=== PATIENT | female | born 1995 | race Caucasian/White ===

== ENCOUNTER 2020-12-28 11:28 | Inpatient (IN) | payer OTHER ==
[2020-12-28 12:16] VITALS: BMI 37.4
[2020-12-28] MEDS ORDERED: Lidocaine 1% (PF) 30 ML VIAL SC PRN (12:18)
[2020-12-28] MEDS ORDERED: Ibuprofen 800 MG TAB PO PRN (12:18)
[2020-12-28] MEDS ORDERED: hydrALAZINE 20 MG/ML VIAL SLOW IVP PRN (12:18)
[2020-12-28] MEDS ORDERED: HYDROcodone/Acetaminophen 5/325 mg Tablet PO PRN ×2 (12:18)
[2020-12-28] MEDS ORDERED: Promethazine HCl 25 MG/ML VIAL IM PRN (12:18)
[2020-12-28] MEDS ORDERED: NS / Oxytocin 40 units/1000ml 1,000 ML IV PRN (12:18)
[2020-12-28] MEDS ORDERED: Ondansetron PF 4 MG/2 ML Vial IVP PRN (12:18)
[2020-12-28] MEDS ORDERED: Butorphanol Tartrate 1 MG/ML VIAL SLOW IVP PRN (12:18)
[2020-12-28 14:11] LABS: Hemoglobin 13.5 g/dL (12.0-15.5); Mean Corpuscular HGB CONC 33.2 g/dL (32.0-36.0); Mean Corpuscular Hemoglobin 29.9 pg (27.0-33.0); Mean Corpuscular Volume 90.2 fl (81.6-98.3); Mean Platelet Volume 11.2 fl (7.4-10.4); Platelet Count 233 10x3/uL (150-450); RBC Distribution Width 13.4 % (11.5-14.5); Red Blood Cell (RBC) Count 4.51 10x6/uL (3.90-5.03); White Blood Cell (WBC) Count 15.4 10x3/uL (3.5-10.5)
[2020-12-28 14:46] LABS: ALT (SGPT) 16 U/L (8-55); AST (SGOT) 17 U/L (5-34); Albumin 3.7 g/dL (3.5-5.0); Alkaline Phosphatase 147 U/L (40-110); Anion Gap 14 mmol/L (10-20); BUN (Urea Nitrogen) 10 mg/dL (7.0-18.7); Bilirubin, Total 0.3 mg/dL (0.2-1.2); Calc. Creatinine Clearance 252 mL/min (70-130); Calcium 8.8 mg/dL (7.8-10.44); Carbon Dioxide 22 mmol/L (22-29); Chloride 105 mmol/L (98-107); Globulin 2.9 g/dL (2.4-3.5); Glucose 67 mg/dL (70-105); Potassium 3.9 mmol/L (3.5-5.1); Protein, Total 6.6 g/dL (6.0-8.3); Sodium 137 mmol/L (136-145)
[2020-12-28 15:03] LABS: Syphilis Antibody Nonreactive (Nonreactive); Syphilis Antibody Index 0.04 S/CO (<1.00 Non-Reactive)
[2020-12-28 15:06] LABS: Hep B Surf Ag Non-Reactive S/CO (NonReactive)
[2020-12-28 15:10] LABS: HBSAg Index 0.17 S/CO (0-0.99)
[2020-12-28 22:31] LABS: Amphetamine Not Detected (NotDetected); Barbiturates Screen Not Detected (NotDetected); Benzodiazepine Screen Not Detected (NotDetected); Cocaine Metabolite Screen Not Detected (NotDetected); Methadone Not Detected (NotDetected); Methamphetamine Not Detected (NotDetected); Opiate Screen Not Detected (NotDetected); Oxycodone Screen Not Detected (NotDetected); Phencyclidine (PCP) Not Detected (NotDetected); THC/Cannabinoid Screen Not Detected (NotDetected); Tricyclic Screen Not Detected (NotDetected)
[2020-12-29] MEDS ORDERED: Fentanyl 4 mcg/Bup 0.1% Cadd 100 ML ONE (02:45)
[2020-12-29] MEDS: Lactated Ringer's 1,000 ML IV SCH ×4 (03:48→17:39)
[2020-12-29] MEDS ORDERED: NS w/ Oxytocin 30 units 500 ML ONE ×2 (05:09→08:26)
[2020-12-29] MEDS ORDERED: Methylergonovine 0.2 MG/ML VIAL ONE (07:15)
[2020-12-29] MEDS ORDERED: Misoprostol 200 MCG TAB ONE (07:15)
[2020-12-29] MEDS ORDERED: Milk Of Magnesia 30 ML UDCUP PO PRN (07:37)
[2020-12-29] MEDS ORDERED: Adacel (T-DAP) 0.5 ML SYRINGE IM ONE (07:37)
[2020-12-29] MEDS ORDERED: Measles/Mumps/Rubella 10 MCG/0.5 ML VIAL SC ONE (07:37)
[2020-12-29] MEDS ORDERED: Varicella virus, LIVE 0.5 ML VIAL SC ONE (07:37)
[2020-12-29] MEDS ORDERED: hydrALAZINE 20 MG/ML VIAL SLOW IVP PRN (07:37)
[2020-12-29] MEDS ORDERED: Lanolin Ointment 7 GM TUBE TOP PRN (07:37)
[2020-12-29] MEDS ORDERED: Benzocaine-Menthol 82.5 ML CAN TOP PRN (07:37)
[2020-12-29] MEDS ORDERED: Bisacodyl 10 MG SUPP PR PRN (07:37)
[2020-12-29] MEDS ORDERED: Acetaminophen/Codeine 30-300mg Tablet PO PRN (07:37)
[2020-12-29] MEDS ORDERED: NS / Oxytocin 40 units/1000ml 1,000 ML IV SCH (07:45)
[2020-12-29] MEDS: Ibuprofen 800 MG TAB PO SCH ×2 (09:47→17:04)
[2020-12-29] MEDS: Acetaminophen/Codeine 30-300mg Tablet PO PRN (13:29)
[2020-12-29 15:50] LABS: SARS-CoV-2 PCR by NAA Not Detected (NotDetected)
[2020-12-29] MEDS: Ferrous Sulfate 325 MG TAB PO SCH ×2 (16:42→17:05)
[2020-12-29] MEDS: Prenatal Vitamin 1 TAB PO SCH (16:42)
[2020-12-29] MEDS: Docusate Calcium (SURFAK) 240 MG CAP PO SCH ×2 (16:42→21:51)
[2020-12-30] MEDS: Ibuprofen 800 MG TAB PO SCH ×3 (00:56→16:56)
[2020-12-30] MEDS: Ferrous Sulfate 325 MG TAB PO SCH (07:15)
[2020-12-30] MEDS: Lactated Ringer's 1,000 ML IV SCH ×2 (07:15→19:29)
[2020-12-30 07:21] LABS: HIV (1/2) Antibody/Antigen Non-Reactive (NonReactive); HIV 1/2 INDEX 0.12 S/CO (<1.00)
[2020-12-30] MEDS: Prenatal Vitamin 1 TAB PO SCH (07:51)
[2020-12-30] MEDS: Docusate Calcium (SURFAK) 240 MG CAP PO SCH ×2 (07:51→21:22)
[2020-12-30] MEDS: Acetaminophen/Codeine 30-300mg Tablet PO PRN (14:54)
[2020-12-31] MEDS: Ibuprofen 800 MG TAB PO SCH ×2 (00:19→07:38)
[2020-12-31] MEDS: Lactated Ringer's 1,000 ML IV SCH (07:11)
[2020-12-31] MEDS: Ferrous Sulfate 325 MG TAB PO SCH (07:11)
[2020-12-31] MEDS: Prenatal Vitamin 1 TAB PO SCH (07:38)
[2020-12-31] MEDS: Docusate Calcium (SURFAK) 240 MG CAP PO SCH (07:38)
[2020-12-31 08:32] VITALS: BP 137/73; TEMP 97.7
[2020-12-31] MEDS: Acetaminophen/Codeine 30-300mg Tablet PO PRN (14:24)
== END 2020-12-31 14:45 | disposition home or self-care (01) | DRG 807 ==
LOC: CSHLD/OP 11:28 → CSHLD 12:18 → CSHPP 12-29 16:58
PROVIDERS: ADMIT Obstetrics & Gynecology; ATTEND Obstetrics & Gynecology
PROC: 10E0XZZ Delivery of Products of Conception, External Approach (ICD-10-PCS; principal; 2020-12-29)
DX: O48.0 Post-term pregnancy (principal); Z37.0 Single live birth; Z3A.41 41 weeks gestation of pregnancy; Z20.822 Contact with and (suspected) exposure to COVID-19; O13.4 Gestational [pregnancy-induced] hypertension without significant proteinuria, complicating childbirth; O69.81X0 Labor and delivery complicated by cord around neck, without compression, not applicable or unspecified
CPT/HCPCS: 36415; 51702; 80053; 80306; 81003; 82570; 85027; 86762; 86780; 86850; 86900; 86901; 87340; 87389; 87635; 99285; J2590; U0003; U0005